=== PATIENT | male | born 1995 ===

== ENCOUNTER 2019-04-23 02:31 | Emergency (ER) | payer BC ==
--- NOTE | 2019-04-23 03:50 | ED ---
Neck Pain - HPI Summary HPI Summary: Patient is a 24 y/o M presenting to [facility] with complaints of right neck pain with radiation of pain to his right shoulder. He states that the pain has been present for the past 2-3 months but notes that the pain has worsened in the past week. On triage, pain is rated 7/10. He denies tingling, numbness, and weakness. He endorses IRVIN and notes that his right eye is blurry when pain is severe. Patient denies fever, N/V/D. Patient states that he had three anchors placed at the front and back of his right shoulder in 2015. He also makes note of a cyst to his right lower neck. Patient has been evaluated for this cyst and was prescribed antibiotics 3-4 weeks ago for it. He is unsure of the name of the antibiotic. No PMHx otherwise noted. No daily medications, NKDA reported. He is a current smoker, uses alcohol rarely, and uses marijuana. PSHx of tonsillectomy and adenoidectomy reported. FMHx of brain aneurysm noted. Home medications and allergies are reviewed. - History of Current Complaint Chief Complaint: EDNeckComplaint Stated Complaint: NECK AND SHOULDER PAIN PER PT Time Seen by Provider: 04/23/19 02:56 Hx Obtained From: Patient Onset/Duration Of Injury/Symptoms: Weeks Mechanism Of Injury: No Known Trauma Timing: Constant, Lasting Weeks Onset/Duration: Still Present, Worse Since Severity Initially: Mild Severity Currently: Severe Pain Intensity: 7 Pain Scale Used: 0-10 Numeric Location: Discrete At: - right neck, Radiates To: - right shoulder Associated Signs & Symptoms: Negative: Weakness, Paresthesia - Allergies/Home Medications Allergies/Adverse Reactions: Allergies Allergy/AdvReac Type Severity Reaction Status Date / Time No Known Allergies Allergy Verified 04/23/19 02:37 PMH/Surg Hx/FS Hx/Imm Hx Endocrine/Hematology History: Denies: Hx Diabetes, Hx Thyroid Disease Cardiovascular History: Denies: Hx Hypercholesterolemia, Hx Hypertension, Hx Pacemaker/ICD, Hx Peripheral Vascular Disease Musculoskeletal History: Reports: Hx Bursitis - RIGHT SHOULDER WITH IMPINGEMENT HISTORY Denies: Hx Arthritis, Hx Osteoporosis Sensory History: Reports: Hx Contacts or Glasses - GLASSES Denies: Hx Cataracts, Hx Glaucoma, Hx Hearing Aid Opthamlomology History: Reports: Hx Contacts or Glasses - GLASSES Denies: Hx Cataracts, Hx Glaucoma Neurological History: Denies: Hx Headaches, Hx Seizures, Hx Transient Ischemic Attacks (TIA) Psychiatric History: Denies: Hx Anxiety, Hx Depression, Hx Panic Disorder - Surgical History Surgery Procedure, Year, and Place: 2005 TONSILS AND ADENOIDS, [facility]. 2013 RIGHT SHOULDER SURGERY, [facility] Hx Anesthesia Reactions: Yes - REACTION TO STEROID-HARD TO WAKE, HOT, SWEATY - Immunization History Immunizations Up to Date: Yes Infectious Disease History: No Infectious Disease History: Denies: Traveled Outside the [place] in Last 30 Days - Family History Known Family History: Positive: Other - brain aneurysm - Social History Alcohol Use: None Hx Substance Use: No Substance Use Type: Reports: None Hx Tobacco Use: No Smoking Status (MU): Never Smoked Tobacco Review of Systems - ROS Summary Review of Systems Summary: Home Medications Medication Instructions Recorded Confirmed Type Ibuprofen 400 mg PO ONCE 07/03/12 07/07/13 History Negative: Fever Positive: Blurred Vision Negative: Vomiting, Diarrhea, Nausea Musculoskeletal: Other - positive - right neck and right shoulder pain Positive: Headache. Negative: Weakness, Paresthesia, Numbness All Other Systems Reviewed And Are Negative: Yes Physical Exam - Summary Physical Exam Summary: General: Well-developed, Well-nourished male. No acute distress. HEENT: Normocephalic, Atraumatic. Eyes: Conjuctiva normal, PERRL. Oropharynx: Clear, mucous membranes moist, (-) exudates. Neck: Soft, FROM, (-) lymphadenopathy, (-) thyromegaly, (-) JVD. Cardiovascular: Normal sinus rhythm, (-) murmur. Lungs: Clear to auscultation bilaterally (-) wheezes, (-) rales, (-) rhonchi. Abdomen: Soft, non-tender, non-distended, (-) organomegaly, normal bowel sounds. Back: (-) CVA tenderness Extremities: No edema. Skin: There is a 14 mm erythematous, subcutaneous cyst structure that is freely mobile with tenderness and warmth at his right posterior neck. Otherwise normal. Neuro: Alert and oriented x3, no focal deficits. Psychiatric: Mood normal, affect normal. Triage Information Reviewed: Yes Vital Signs On Initial Exam: Initial Vitals Temp Pulse Resp BP Pulse Ox 97.8 F 58 16 148/89 99 04/23/19 02:34 04/23/19 02:34 04/23/19 02:34 04/23/19 02:34 04/23/19 02:34 Vital Signs Reviewed: Yes Procedures - Procedure Summary Procedure Summary: Incision and drainage was done on cyst at right posterior neck. No anesthesia was used. Cyst was opened with scalpel. There was copious amounts of purulent drainage extracted. Cultures were sent. Patient had significant relief of discomfort post-procedure. Patient tolerated procedure well. Iodoform gauze was used as packing. - Sedation Patient Received Moderate/Deep Sedation with Procedure: No - Incision and Drainage Neck Site: right posterior neck Anesthesia: Other - none Instrument(s): Scalpel Packing: Gauze - iodoform Diagnostics - Vital Signs Vital Signs Temp Pulse Resp BP Pulse Ox 04/23/19 02:34 97.8 F 58 16 148/89 99 - Laboratory Lab Statement: Any lab studies that have been ordered have been reviewed, and results considered in the medical decision making process. Neck Course/Dx - Course Course Of Treatment: 24-year-old male with complaints of pain in his right neck and shoulder area. Patient has large cyst in his posterior right neck. Patient states he took a course of antibiotics for about 2-3 weeks ago. It continues to increase in size and be painful. No fevers. No vomiting. Patient agreed to I&D. Purulent discharge expressed. Culture sent. Small amount of iodoform packing placed Bacitracin ointment was applied to cyst site. Follow-up with PCP. Follow-up sooner for any worsening symptoms. - Diagnoses Provider Diagnoses: Neck pain, Cyst of neck Discharge ED - Sign-Out/Discharge Documenting (check all that apply): Patient Departure - discharge - Discharge Plan Condition: Stable Disposition: HOME Patient Education Materials: Neck Pain (ED) Referrals: [facility] [Outside] - 3 Days Additional Instructions: PLEASE RETURN TO ED FOR ANY NEW OR WORSENING SYMPTOMS. PLEASE FOLLOW UP WITH YOUR PRIMARY CARE PHYSICIAN WITHIN THREE DAYS. - Billing Disposition and Condition Condition: STABLE Disposition: Home - Attestation Statements Document Initiated by Scribe: Yes Documenting Scribe: ALPA HILL Provider For Whom Scribe is Documenting (Include Credential): MARKO ELLIOTT MD Scribe Attestation: ALPA Scott, scribed for MARKO LELIOTT MD on 04/23/19 at 0602. Scribe Documentation Reviewed: Yes Provider Attestation: The documentation as recorded by the scribe, ALPA HILL accurately reflects the service I personally performed and the decisions made by me, MARKO ELLIOTT MD Status of Scribe Document: Viewed
[2019-04-23] MEDS ORDERED: Bacitracin OINTMENT* 0.5% 0.5 oz TUBE ONE (04:10)
[2019-04-23 04:24] VITALS: BP 105/63
[2019-04-23] MEDS ORDERED: Bacitracin OINTMENT* 0.5% 0.5 oz TUBE TOPICAL SCH (04:30)
== END 2019-04-23 04:23 | disposition home or self-care (01) ==
LOC: ED 02:31
DX: L72.3 Sebaceous cyst (principal); M54.2 Cervicalgia
CPT/HCPCS: 10060; 87070; 87205; 99282; A9270-GY